=== PATIENT | female | born 1995 | race African-American/Black ===

== ENCOUNTER 2020-05-12 07:25 | Emergency (ER) | payer MEDICAID ==
[~2020-05-12] VITALS: Ht 165.1 cm; Wt 90.7 kg
[2020-05-12 07:27] VITALS: BP 129/57
[2020-05-12] MEDS ORDERED: LIDOCAINE 1% HCL (LOCAL ANESTH.) INJ 20ML MDV IJ ONE (08:30)
== END 2020-05-12 09:07 | disposition home or self-care (01) ==
LOC: ER 07:25
DX: S61.012A Laceration without foreign body of left thumb without damage to nail, initial encounter (principal); W26.0XXA Contact with knife, initial encounter; Y93.89 Activity, other specified; Y92.89 Other specified places as the place of occurrence of the external cause; Y99.8 Other external cause status
CPT/HCPCS: 12001; 99282; J2001

== ENCOUNTER 2022-07-08 17:42 | Emergency (ER) | payer MEDICAID ==
[~2022-07-08] VITALS: Ht 165.1 cm; Wt 113.4 kg
[2022-07-08] MEDS ORDERED: PRED20TA2 PO (19:05)
[2022-07-08] MEDS ORDERED: AZIT250T9 PO (19:05)
[2022-07-08] MEDS ORDERED: methylPREDNISolone SOD SUCC 125 MG/2 ML VL IM ONE (19:15)
[2022-07-08] MEDS ORDERED: cefTRIAXone SOD 1,000 MG VL IM ONE (19:15)
[2022-07-08 21:42] VITALS: BP 130/72
== END 2022-07-08 21:45 | disposition home or self-care (01) ==
LOC: ER 17:42
DX: J06.9 Acute upper respiratory infection, unspecified (principal); H92.01 Otalgia, right ear
CPT/HCPCS: 96372; 99283; J0696

== ENCOUNTER 2023-10-23 16:02 | Emergency (ER) | payer MEDICAID ==
[~2023-10-23] VITALS: Ht 165.1 cm; Wt 101.2 kg
[~2023-10-23 16:02] MED LIST: AZIT-43 PO; PRED20TA2 PO
[2023-10-23] MEDS: KETOROLAC TROMETH 30 MG/ML 1ML VIAL IM ONE (17:39)
[2023-10-23] MEDS: METOCLOPRAMIDE HCL 5MG/ml INJ 2ml VIAL IM ONE (17:39)
[2023-10-23 17:42] LABS: Basophils # (auto) 0 10 ^3/uL (0-0.2); Basophils % (auto) 0.2 % (0.0-2.0); Eosinophils # (auto) 0 10 ^3/uL (0-0.8); Eosinophils % (auto) 0.4 % (0.0-7.0); Hematocrit 39.2 % (36.0-46.0); Hemoglobin 13.1 g/dL (12.2-16.2); Lymphocytes # (auto) 1.5 10 ^3/uL (0.4-5.4); Mean Corpuscular Hemoglobin 28.5 pg (28.0-32.0); Mean Corpuscular Hgb Conc. 33.4 g/dL (32.0-36.0); Mean Corpuscular Volume 85.2 fL (80.0-100.0); Monocytes # (auto) 0.6 10 ^3/uL (0-1.3); Monocytes % (auto) 8.8 % (0.0-12.0); Neutrophils # (auto) 4.8 10 ^3/uL (1.6-8.6); Neutrophils % (auto) 68.6 % (37.0-80.0); Nucleated Red Blood Cells % 0.1 %; Platelet Count (auto) 335 10^3/uL (140-450); Red Blood Cells 4.61 10^6/uL (4.0-5.20)
[2023-10-23 17:45] LABS: Alanine Aminotransferase 124 U/L (7-40); Albumin 4.4 g/dL (3.2-4.8); Alkaline Phosphatase 115 U/L (46-116); Anion Gap 7 (5-15); Aspartate Aminotransferase 124 U/L (13-40); BUN/Creatinine Ratio 7.2 (10.0-20.0); Blood Urea Nitrogen 5 mg/dL (9-23); Calcium 9.6 mg/dL (8.7-10.4); Carbon Dioxide 22 mmol/L (20-30); Chloride 108 mmol/L (98-107); Glucose 94 mg/dL (74-106); Potassium 3.9 mmol/L (3.5-5.1); Sodium 137 mmol/L (136-145)
[2023-10-23 17:46] VITALS: BP 136/85; PULSE 79; RESP 18; TEMP 98; O2SAT 98
[2023-10-23 17:46] LABS: Bilirubin, Total 0.8 mg/dL (0.2-1.0); Total Protein 7.2 g/dL (5.7-8.2)
[2023-10-23 18:43] LABS: Urine Bacteria None Seen /hpf (None Seen)
[2023-10-23 19:01] LABS: Urine Blood Negative /uL (Negative); Urine Clarity Clear (Clear); Urine Color Yellow (Yellow); Urine Mucus FEW (None Seen); Urine Protein, UAD 1+ (Negative); Urine Specific Gravity 1.033 (1.001-1.035); Urine Urobilinogen Normal (Negative); Urine WBC 1 /hpf (0 - 5)
== END 2023-10-23 22:17 | disposition home or self-care (01) ==
LOC: ER 16:02
DX: K80.20 Calculus of gallbladder without cholecystitis without obstruction (principal); R10.2 Pelvic and perineal pain; Z79.52 Long term (current) use of systemic steroids
CPT/HCPCS: 36415; 76705; 80053; 81001; 84702; 85025; 96372; 99285; J1885; J2765

== ENCOUNTER 2023-12-14 13:22 | Inpatient (IN) | payer MEDICAID ==
[~2023-12-14] VITALS: Ht 165.1 cm; Wt 107.0 kg
[2023-12-14 13:53] VITALS: RESP 18
[2023-12-14 14:44] LABS: Basophils # (auto) 0 10 ^3/uL (0-0.2); Basophils % (auto) 0.4 % (0.0-2.0); Eosinophils # (auto) 0 10 ^3/uL (0-0.8); Eosinophils % (auto) 0.5 % (0.0-7.0); Hematocrit 38.2 % (36.0-46.0); Hemoglobin 12.4 g/dL (12.2-16.2); Lymphocytes % (auto) 22.8 % (10.0-50.0); Mean Corpuscular Hgb Conc. 32.5 g/dL (32.0-36.0); Mean Corpuscular Volume 83.1 fL (80.0-100.0); Monocytes # (auto) 0.9 10 ^3/uL (0-1.3); Monocytes % (auto) 9.7 % (0.0-12.0); Neutrophils # (auto) 5.9 10 ^3/uL (1.6-8.6); Neutrophils % (auto) 66.6 % (37.0-80.0); Nucleated Red Blood Cells % 0.1 %; Platelet Count (auto) 380 10^3/uL (140-450); Red Blood Cells 4.59 10^6/uL (4.0-5.20); Red Cell Distribution Width 15.7 % (11.8-14.3); White Blood Cell 8.9 10^3/uL (4.4-10.8)
[2023-12-14] MEDS: SODIUM CHLORIDE 0.9% 1,000 ML IV ONE (14:49)
[2023-12-14] MEDS: ONDANSETRON HCL 4 MG/2 ML VIAL IV ONE ×3 (14:52→20:59)
[2023-12-14] MEDS: MORPHINE SULFATE 4 MG/ML SYR/VIAL IV ONE ×3 (14:55→21:00)
[2023-12-14 15:02] LABS: Alanine Aminotransferase 112 U/L (7-40); Albumin 4.6 g/dL (3.2-4.8); Alkaline Phosphatase 92 U/L (46-116); Anion Gap 10 (5-15); Aspartate Aminotransferase 181 U/L (13-40); BUN/Creatinine Ratio 9.3 (10.0-20.0); Blood Urea Nitrogen 7 mg/dL (9-23); Calcium 9.7 mg/dL (8.7-10.4); Carbon Dioxide 22 mmol/L (20-31); Chloride 105 mmol/L (98-107); Glucose 126 mg/dL (74-106); Potassium 3.2 mmol/L (3.5-5.1); Sodium 137 mmol/L (136-145)
[2023-12-14 15:03] LABS: Total Protein 7.4 g/dL (5.7-8.2)
[2023-12-14 15:29] LABS: Lipase > 3500 U/L (12-53)
[2023-12-14] MEDS: KETOROLAC TROMETH 30 MG/ML 1ML VIAL IV ONE (20:59)
[2023-12-15] MEDS: ONDANSETRON HCL 4 MG/2 ML VIAL IV ONE ×3 (00:51→08:18)
[2023-12-15] MEDS: KETOROLAC TROMETH 30 MG/ML 1ML VIAL IV ONE ×3 (00:51→11:39)
[2023-12-15] MEDS: MORPHINE SULFATE 4 MG/ML SYR/VIAL IV ONE ×3 (00:52→08:21)
[2023-12-15 00:56] LABS: Urine Bacteria None Seen /hpf (None Seen)
[2023-12-15 01:04] LABS: Urine Amorphous Crystal FEW /hpf (None Seen); Urine Blood Negative /uL (Negative); Urine Clarity Turbid (Clear); Urine Color Yellow (Yellow); Urine Mucus FEW (None Seen); Urine Protein, UAD 1+ (Negative); Urine Specific Gravity 1.034 (1.001-1.035); Urine Urobilinogen Normal (Negative); Urine WBC 6 /hpf (0 - 5)
[2023-12-15 07:30] VITALS: PULSE 78; RESP 16; O2SAT 95
[2023-12-15] MEDS: ONDANSETRON HCL 4 MG/2 ML VIAL ONE (08:18)
[2023-12-15] MEDS ORDERED: MORPHINE SULFATE INJ 2 MG/ml SYRG IV PRN ×2 (08:45→09:45)
[2023-12-15] MEDS ORDERED: ONDANSETRON HCL 4 MG/2 ML VIAL IV PRN (08:45)
[2023-12-15] MEDS: POTASSIUM CHL 20MEQ/100ML 100 ML IV ONE (10:16)
[2023-12-15] MEDS: LACTATED RINGER'S 1,000 ML IV SCH (13:16)
[2023-12-15] MEDS: ONDANSETRON HCL 4 MG/2 ML VIAL IV PRN (15:58)
[2023-12-15] MEDS: HYDROmorphone HCL 2 MG/ML VL/or syr IV PRN (16:00)
[2023-12-15 19:55] VITALS: PULSE 88; RESP 12; O2SAT 94
[2023-12-15] MEDS ORDERED: ACETAMINOPHEN IV 1000 MG/100ML (10MG/ML) IV PRN (20:00)
[2023-12-15 20:48] VITALS: BP 143/90; PULSE 83; RESP 16; TEMP 100.5; O2SAT 95
[2023-12-15 22:05] VITALS: TEMP 99.8
[2023-12-15 23:40] VITALS: BP 143/40; PULSE 83; RESP 16; TEMP 99.8; O2SAT 95
[2023-12-16] VITALS (8 sets, daily range): BP systolic 130–156; BP diastolic 76–84; PULSE 65–100; RESP 16–21; TEMP 98.1–99.8; O2SAT 94–99
[2023-12-16] MEDS ORDERED: IBUP-1456 PO (00:28)
[2023-12-16] MEDS ORDERED: LINA1CAP2 PO (00:28)
[2023-12-16] MEDS ORDERED: PANT40TA2 PO (00:28)
[2023-12-16 06:25] LABS: Basophils # (auto) 0 10 ^3/uL (0-0.2); Basophils % (auto) 0.1 % (0.0-2.0); Eosinophils # (auto) 0 10 ^3/uL (0-0.8); Hematocrit 34.3 % (36.0-46.0); Hemoglobin 11.2 g/dL (12.2-16.2); Lymphocytes # (auto) 1.1 10 ^3/uL (0.4-5.4); Lymphocytes % (auto) 10.4 % (10.0-50.0); Mean Corpuscular Hemoglobin 27.5 pg (28.0-32.0); Mean Corpuscular Hgb Conc. 32.5 g/dL (32.0-36.0); Mean Corpuscular Volume 84.3 fL (80.0-100.0); Monocytes # (auto) 1.2 10 ^3/uL (0-1.3); Monocytes % (auto) 11.5 % (0.0-12.0); Neutrophils # (auto) 8.4 10 ^3/uL (1.6-8.6); Platelet Count (auto) 321 10^3/uL (140-450); Red Blood Cells 4.07 10^6/uL (4.0-5.20); Red Cell Distribution Width 16.1 % (11.8-14.3); White Blood Cell 10.8 10^3/uL (4.4-10.8)
[2023-12-16 06:31] LABS: Chloride 109 mmol/L (98-107); Potassium 3.8 mmol/L (3.5-5.1); Sodium 141 mmol/L (136-145)
[2023-12-16 06:32] LABS: Anion Gap 8 (5-15); Calcium 9.2 mg/dL (8.7-10.4); Carbon Dioxide 24 mmol/L (20-31)
[2023-12-16 06:37] LABS: Blood Urea Nitrogen 7 mg/dL (9-23); Glucose 95 mg/dL (74-106)
[2023-12-16] MEDS: PANTOPRAZOLE 40 MG/10 ML VIAL INJ IV ONE (21:00)
[2023-12-17] VITALS (8 sets, daily range): BP systolic 104–149; BP diastolic 62–76; PULSE 63–94; RESP 16–19; TEMP 97.6–100.1; O2SAT 94–98
[2023-12-17] MEDS: HYDROcodone-ACET 10/325MG TAB PO PRN (00:46)
[2023-12-17 06:22] LABS: Basophils # (auto) 0 10 ^3/uL (0-0.2); Basophils % (auto) 0.2 % (0.0-2.0); Eosinophils # (auto) 0 10 ^3/uL (0-0.8); Eosinophils % (auto) 0.1 % (0.0-7.0); Hematocrit 32.2 % (36.0-46.0); Hemoglobin 10.4 g/dL (12.2-16.2); Lymphocytes # (auto) 1.9 10 ^3/uL (0.4-5.4); Lymphocytes % (auto) 18.2 % (10.0-50.0); Mean Corpuscular Hemoglobin 27.2 pg (28.0-32.0); Mean Corpuscular Hgb Conc. 32.2 g/dL (32.0-36.0); Mean Corpuscular Volume 84.3 fL (80.0-100.0); Monocytes # (auto) 1.4 10 ^3/uL (0-1.3); Neutrophils # (auto) 7.2 10 ^3/uL (1.6-8.6); Neutrophils % (auto) 68.5 % (37.0-80.0); Platelet Count (auto) 290 10^3/uL (140-450); Red Blood Cells 3.83 10^6/uL (4.0-5.20); Red Cell Distribution Width 16.1 % (11.8-14.3); White Blood Cell 10.5 10^3/uL (4.4-10.8)
[2023-12-17 06:51] LABS: Alanine Aminotransferase 26 U/L (7-40); Albumin 3.6 g/dL (3.2-4.8); Alkaline Phosphatase 65 U/L (46-116); Anion Gap 9 (5-15); Aspartate Aminotransferase 14 U/L (13-40); BUN/Creatinine Ratio 12.9 (10.0-20.0); Bilirubin, Total 0.9 mg/dL (0.2-1.0); Blood Urea Nitrogen 8 mg/dL (9-23); Calcium 8.9 mg/dL (8.7-10.4); Carbon Dioxide 25 mmol/L (20-31); Chloride 107 mmol/L (98-107); Glucose 80 mg/dL (74-106); Potassium 3.7 mmol/L (3.5-5.1); Sodium 141 mmol/L (136-145)
[2023-12-17] MEDS: PANTOPRAZOLE 40 MG/10 ML VIAL INJ IV SCH (09:18)
[2023-12-17] MEDS: ENOXAPARIN SOD 40 MG/0.4 ML SYRINGE SC SCH (09:18)
[2023-12-17] MEDS: OXYCODONE W/ ACETAMINOPHEN 5/325MG TABLET PO PRN (14:14)
[2023-12-18] VITALS (8 sets, daily range): BP systolic 126–135; BP diastolic 75–83; PULSE 86–106; RESP 17–18; TEMP 98.9–101; O2SAT 92–98
[2023-12-18 06:13] LABS: Basophils # (auto) 0 10 ^3/uL (0-0.2); Basophils % (auto) 0.1 % (0.0-2.0); Eosinophils # (auto) 0 10 ^3/uL (0-0.8); Eosinophils % (auto) 0.2 % (0.0-7.0); Lymphocytes # (auto) 1.3 10 ^3/uL (0.4-5.4); Lymphocytes % (auto) 14.4 % (10.0-50.0); Mean Corpuscular Hemoglobin 27.2 pg (28.0-32.0); Mean Corpuscular Hgb Conc. 32.2 g/dL (32.0-36.0); Mean Corpuscular Volume 84.6 fL (80.0-100.0); Monocytes # (auto) 1.3 10 ^3/uL (0-1.3); Monocytes % (auto) 13.7 % (0.0-12.0); Neutrophils # (auto) 6.5 10 ^3/uL (1.6-8.6); Neutrophils % (auto) 71.6 % (37.0-80.0); Platelet Count (auto) 294 10^3/uL (140-450); Red Blood Cells 3.66 10^6/uL (4.0-5.20); Red Cell Distribution Width 15.4 % (11.8-14.3); White Blood Cell 9.2 10^3/uL (4.4-10.8)
[2023-12-18 06:31] LABS: Alanine Aminotransferase 20 U/L (7-40); Albumin 3.7 g/dL (3.2-4.8); Alkaline Phosphatase 69 U/L (46-116); Anion Gap 9 (5-15); Aspartate Aminotransferase 12 U/L (13-40); BUN/Creatinine Ratio 10.7 (10.0-20.0); Blood Urea Nitrogen 6 mg/dL (9-23); Carbon Dioxide 25 mmol/L (20-31); Chloride 105 mmol/L (98-107); Glucose 72 mg/dL (74-106); Lipase 76 U/L (12-53); Potassium 3.5 mmol/L (3.5-5.1); Sodium 139 mmol/L (136-145)
[2023-12-18 06:32] LABS: Bilirubin, Total 0.8 mg/dL (0.2-1.0); Total Protein 6.1 g/dL (5.7-8.2)
[2023-12-18] MEDS: ACETAMINOPHEN 325 MG TAB PO PRN (21:16)
[2023-12-19] VITALS (7 sets, daily range): BP systolic 126–140; BP diastolic 70–88; PULSE 85–101; RESP 15–18; TEMP 98.2–99.8; O2SAT 90–97
[2023-12-19 06:35] LABS: Basophils # (auto) 0 10 ^3/uL (0-0.2); Basophils % (auto) 0.1 % (0.0-2.0); Eosinophils # (auto) 0 10 ^3/uL (0-0.8); Eosinophils % (auto) 0.6 % (0.0-7.0); Hematocrit 30.1 % (36.0-46.0); Hemoglobin 10.2 g/dL (12.2-16.2); Lymphocytes # (auto) 1.7 10 ^3/uL (0.4-5.4); Lymphocytes % (auto) 20.9 % (10.0-50.0); Mean Corpuscular Hemoglobin 28.3 pg (28.0-32.0); Mean Corpuscular Hgb Conc. 33.9 g/dL (32.0-36.0); Mean Corpuscular Volume 83.5 fL (80.0-100.0); Monocytes % (auto) 11.8 % (0.0-12.0); Neutrophils # (auto) 5.6 10 ^3/uL (1.6-8.6); Neutrophils % (auto) 66.6 % (37.0-80.0); Platelet Count (auto) 308 10^3/uL (140-450); Red Cell Distribution Width 14.8 % (11.8-14.3); White Blood Cell 8.3 10^3/uL (4.4-10.8)
[2023-12-19 07:00] LABS: Alanine Aminotransferase 15 U/L (7-40); Albumin 3.6 g/dL (3.2-4.8); Alkaline Phosphatase 65 U/L (46-116); Anion Gap 7 (5-15); Aspartate Aminotransferase 12 U/L (13-40); Bilirubin, Total 0.5 mg/dL (0.2-1.0); Carbon Dioxide 27 mmol/L (20-31); Chloride 104 mmol/L (98-107); Glucose 86 mg/dL (74-106); Potassium 3.2 mmol/L (3.5-5.1); Sodium 138 mmol/L (136-145); Total Protein 6.1 g/dL (5.7-8.2)
[2023-12-19 07:02] LABS: BUN/Creatinine Ratio 8.3 (10.0-20.0); Blood Urea Nitrogen < 5 mg/dL (9-23)
[2023-12-20 01:03] VITALS: BP 127/72; PULSE 72; RESP 18; TEMP 99.4; O2SAT 100
[2023-12-20 05:00] VITALS: BP 139/93; PULSE 85; RESP 18; TEMP 98.6; O2SAT 92
[2023-12-20 09:08] VITALS: BP 126/98; PULSE 98; RESP 18; TEMP 99.4; O2SAT 95
[2023-12-20] MEDS: LACTULOSE 20Gm/30ML SOLN PO ONE (09:58)
[2023-12-20] MEDS ORDERED: ZOFR4T PO (12:55)
[2023-12-20] MEDS ORDERED: HYDR-4072 PO (12:55)
[2023-12-20 13:39] VITALS: BP 134/83; PULSE 99; RESP 16; TEMP 98.8; O2SAT 95
== END 2023-12-20 14:24 | disposition home or self-care (01) ==
LOC: ER 13:22 → OVERFLOW 12-15 08:41 → ER 12-15 08:41 → EAST 12-15 20:40
PROVIDERS: ADMIT Student in an Organized Health Care Education/Training Program; ATTEND Student in an Organized Health Care Education/Training Program
DX: K80.20 Calculus of gallbladder without cholecystitis without obstruction (principal); K85.10 Biliary acute pancreatitis without necrosis or infection; E88.89 Other specified metabolic disorders; E87.6 Hypokalemia; E86.0 Dehydration; D64.9 Anemia, unspecified; Z88.3 Allergy status to other anti-infective agents; Z79.899 Other long term (current) drug therapy; E86.9 Volume depletion, unspecified
CPT/HCPCS: 36415; 74181; 76705; 80048; 80053; 81001; 81025; 83690; 85025; 93005; 96361; 96374; 96375; 96376; 99291; G0378; J1885; J2405; J2470; J3480

== ENCOUNTER 2024-01-06 09:18 | Inpatient (IN) | payer MEDICAID ==
[~2024-01-06] VITALS: Ht 165.1 cm; Wt 105.7 kg
[~2024-01-06 09:18] MED LIST changes: +HYDR-4072 PO; +IBUP-1456 PO; +LINA1CAP2 PO; +PANT40TA2 PO; -PRED20TA2 PO; +ZOFR4T PO
--- NOTE | 2024-01-06 10:30 | ED.PDOC ---
GI ASSESSMENT HPI Comments 28 year old female presents to the ED with chief complaint of abdominal pain. Patient reports that she has been experiencing epigastric abdominal pain that radiates to her RUQ/back with associated nausea, vomiting, and sweats for the past few days. Patient relays that she had similar pain two weeks ago where she was diagnosed with pancreatitis and gallstones in [facility], being admitted for a few days before discharge. Patient states she is now scheduled for gallbladder surgery in February, but her pain has now returned. Patient denies any diarrhea, chest pain, fever, chills, dizziness, dysuria, or hematemesis. Chief Complaint: Abdominal Pain Time Seen by MD: 10:26 Primary Care Provider: CLOVIS Reviewed Notes: Nurses Notes, Medications, Allergies Allergies: Coded Allergies: Sulfamethoxazole w/Trimethoprim (Verified Allergy, Unknown, 12/15/23) Home Meds Active Scripts Ondansetron Odt 4MG Tab (ZOFRAN PO) 4 Mg Tb, 4 MG PO TIDPRN PRN for 7 Days, #21 TAB 0 Refills ODT TAB-DISSOLVE IN MOUTH, THEN SWALLOW Prov:JUAN MANUEL FOLEY MD 12/20/23 Hydrocodone-Acetaminophen (Hydrocodone/Acetaminophen 10-325 mg) 1 Tab Tab, 1 TAB PO TIDPRN PRN for 7 Days, #21 TAB 0 Refills Prov:JUAN MANUEL FOLEY MD 12/20/23 Azithromycin (Azithromycin) 250 Mg Tab, 250 MG PO DAILY MDD 500 for 5 Days, #6 TAB 0 Refills 2 TABLETS ORALLY ON DAY ONE, THEN 1 TABLET ORALLY DAILY FOR 4 DAYS Prov:NIKKI GRULLON 07/08/22 Reported Medications Pantoprazole Sodium Sesquihydr (Protonix) 40 Mg Tab, 40 MG PO DAILY, #30 TAB 12/16/23 Ibuprofen (Ibuprofen) 800 Mg Tab, 800 MG PO, MG 12/16/23 Linaclotide Base (Linzess) 72 Mcg Cap, 100 MCG PO, CAP 12/16/23 Information Source: Patient Mode of Arrival: Ambulatory Timing: Days Duration: Since onset Prehospital treatment: None Quality: Sharp Vomitus: Watery Stool: Normal Severity: Moderate Recent: None Recent Hx of: None Pain Location: RUQ Modifying Factors: Nothing Associated sign and symptoms: Nausea, Vomiting, Abdominal Pain Past Medical History PAST MEDICAL HISTORY: Gallstones Past Medical History (Other): Pancreatitis Surgical History: Denies all surgeries FRAME COVERER History: Denies all FRAME COVERER Hx Family History Family History: Reviewed,noncontributory to illness Social History Smoker: Non-Smoker Alcohol: Denies ETOH Use Drugs: Denies Drug Use Lives In: Home Constitutional: reports: sweats; denies: chills, diaphoresis, fatigue, fever, malaise, weakness, others EENTM: denies: blurred vision, double vision, ear bleeding, ear discharge, ear drainage, ear pain, ear ringing, eye pain, eye redness, hearing loss, mouth pain, mouth swelling, nasal discharge, nose bleeding, nose congestion, nose pain, photophobia, tearing, throat pain, throat swelling, voice changes, others Respiratory: denies: cough, hemoptysis, orthopnea, SOB at rest, shortness of breath, SOB with excertion, stridor, wheezing, others Cardiovascular: denies: chest pain, dizzy spells, diaphoresis, Dyspnea on exertion, edema, irregular heart beat, left arm pain, lightheadedness, palpitations, PND, syncope, others Gastrointestinal: reports: abdominal pain, nausea, vomiting; denies: abdomen distended, blood streaked bowels, constipated, diarrhea, dysphagia, difficulty swallowing, hematemesis, melena, poor appetite, poor fluid intake, rectal bleeding, rectal pain, others Genitourinary: denies: abnormal vagina bleeding, burning, dyspareunia, dysuria, flank pain, frequency, hematuria, incontinence, pain, , vagina disch arge, urgency, others Neurological: denies: dizziness, fainting, headache, left sided numbness, left sided weakness, numbness, paresthesia, pre-existing deficit, right sided numbness, right sided weakness, seizure, speech problems, tingling, tremors, weakness, others Musculoskeletal: denies: back pain, gout, joint pain, joint swelling, muscle pain, muscle stiffness, neck pain, others Integumetry: denies: bruises, change in color, change in hair/nails, dryness, laceration, lesions, lumps, rash, wounds, others Allergic/Immunocompromised: denies: Difficulty Healing, Frequent Infections, Hives, Itching, others Hematologic/Lymphatic: denies: anemia, blood clots, easy bleeding, easy bruising, swollen glands, others Endocrine: denies: excessive hunger, excessive sweating, excessive thirst, excessive urination, flushing, intolerance to cold, intolerance to heat, unexplained weight gain, unexplained weight loss, others Psychiatric: denies: anxiety, bipolar disorder, depression, hopeless, panic disorder, schizophrenia, sleepless, suicidal, others All Other Systems: Reviewed and Negative Physical Exam General Appearance: No Apparent Distress, Normal HEENT: Normal ENT Inspection, PERRL/EOMI Neck: Full Range of Motion, Non-Tender, Normal, Normal Inspection Respiratory: Chest Non-Tender, Lungs Clear, No Accessory Muscle Use, No Respiratory Distress, Normal Breath Sounds Cardiovascular: No Edema, No JVD, No Murmur, No Gallop, Normal Peripheral Pulses, Regular Rate/Rhythm Breast Exam: Deferred Gastrointestinal: No Organomegaly, No Pulsatile Mass, Normal Bowel Sounds, Soft, Tenderness (RUQ abdominal tenderness) Genitalia: Deferred Pelvic: Deferred Rectal: Deferred Extremities: No calf tenderness, Normal capillary refill, Normal inspection, Normal range of motion, Non-tender, No pedal edema Musculoskeletal : Apperance: Normal Neurologic: Alert, manager of production II-XII nml as Tested, No Motor Deficits, Normal Affect, Normal Mood, No Sensory Deficits Cerebellar Function: Normal Reflexes: Normal Skin: Dry, Normal Color, Warm Lymphatic: No Adenopathy Was a procedure done? Was a procedure done?: No GI differential Dx Differential Diagnosis: Cholecystitis, Constipation, Gastritis/PUD, Gastroenteritis, Inflammatory BD, Pancreatitis, UTI, Dehydration, Electrolyte Imbalance, Bacterial, Viral X-Ray, Labs, Meds, VS Vital Signs Date Time Temp Pulse Resp B/P (MAP) Pulse Ox O2 Delivery O2 Flow Rate FiO2 01/06/24 09:31 98.6 84 16 125/83 (97) 99 Lab Test 01/06/24 11:01 01/06/24 09:08 Range/Units White Blood Count 6.8 4.4-10.8 10^3/uL Red Blood Count 4.71 4.0-5.20 10^6/uL Hemoglobin 12.8 12.2-16.2 g/dL Hematocrit 39.7 36.0-46.0 % Mean Corpuscular Volume 84.3 80.0-100.0 fL Mean Corpuscular Hemoglobin 27.2 L 28.0-32.0 pg Mean Corpuscular Hemoglobin Concent 32.2 32.0-36.0 g/dL Red Cell Distribution Width 15.5 H 11.8-14.3 % Platelet Count 391 140-450 10^3/uL Mean Platelet Volume 6.5 L 6.9-10.8 fL Neutrophils (%) (Auto) 70.6 37.0-80.0 % Lymphocytes (%) (Auto) 21.9 10.0-50.0 % Monocytes (%) (Auto) 7.0 0.0-12.0 % Eosinophils (%) (Auto) 0.1 0.0-7.0 % Basophils (%) (Auto) 0.4 0.0-2.0 % Neutrophils # (Auto) 4.8 1.6-8.6 10 ^3/uL Lymphocytes # (Auto) 1.5 0.4-5.4 10 ^3/uL Monocytes # (Auto) 0.5 0-1.3 10 ^3/uL Eosinophils # (Auto) 0 0-0.8 10 ^3/uL Basophils # (Auto) 0 0-0.2 10 ^3/uL Nucleated Red Blood Cells 0.1 % Sodium Level 139 136-145 mmol/L Potassium Level 4.4 3.5-5.1 mmol/L Chloride Level 106 98-107 mmol/L Carbon Dioxide Level 24 20-31 mmol/L Anion Gap 9 5-15 Blood Urea Nitrogen 6 L 9-23 mg/dL Creatinine 0.79 0.550-1.02 mg/dL Glomerular Filtration Rate Calc 106 >90 mL/min BUN/Creatinine Ratio 7.6 L 10.0-20.0 Serum Glucose 94 74-106 mg/dL Calcium Level 10.3 8.7-10.4 mg/dL Total Bilirubin 1.1 H 0.2-1.0 mg/dL Aspartate Amino Transferase (AST) 271 H 13-40 U/L Alanine Aminotransferase (ALT) 154 H 7-40 U/L Alkaline Phosphatase 117 H 46-116 U/L Total Protein 7.8 5.7-8.2 g/dL Albumin 4.6 3.2-4.8 g/dL Lipase 85 H 12-53 U/L Urine Color Yellow Yellow Urine Clarity Clear Clear Urine pH 6.5 5.0-9.0 Urine Specific [place] 1.030 1.001-1.035 Urine Protein 1+ H Negative Urine Ketones Negative Negative Urine Blood Negative Negative /uL Urine Nitrite Negative Negative Urine Bilirubin Negative Negative Urine Urobilinogen 3 H Negative mg/dL Urine Leukocyte Esterase Negative Negative /uL Urine RBC 3 0 - 4 /hpf Urine WBC 2 0 - 5 /hpf Urine Squamous Epithelial Cells Few <5 /hpf Urine Bacteria None seen None Seen /hpf Urine Mucus Few None Seen Urine Glucose Normal Normal mg/dL Gallbladder US: FINDINGS: The visualized liver parenchyma appears homogenous . The liver measures 16.5 cm. No discrete hepatic lesion or intrahepatic biliary ductal dilatation is identified. There is a 5 mm gallbladder wall polyp. There is no discrete gallstone identified in the gallbladder on the current study. There is no pericholecystic fluid or significant gallbladder wall thickening.. The common biliary duct measures 6 mm. There is no obvious choledocholithiasis. The right kidney measures 9.0 cm length. No sonographic evidence of nephrolithiasis or hydronephrosis. Pancreas is obscured by bowel gas. IMPRESSION: 1. There is no sonographic evidence of cholelithiasis on the current study. The common duct measures 6 mm. There is no obvious choledocholithiasis. 2. 5 mm gallbladder wall polyp. Images Reviewed?: Images reviewed and evaluated by me Time of 1ST Reevaluation: 11:26 Reevaluation 1ST: Unchanged Patient Education/Counseling: Diagnosis, Treatment Family Education/Counseling: No Family Present Departure 1 Departure Time of Disposition: 13:29 (Patient is still with intractable abdominal pain. Patient also not tolerating p.o.. Patient with transaminitis your mildly elevated lipase. Patient's ultrasound shows a gallbladder polyp. We will admit patient for fluids and expert consultation.) Impression: Primary Impression: Projectile vomiting with nausea Additional Impressions: Transaminitis Right upper quadrant pain Disposition: ADMITTED INPATIENT Admit to: Med Surg Condition: Serious Critical Care Note Critical Care Time?: No Stability Stability form required: No Heart Score Heart Score: Heart Score Response (Comments) Value History N/A 0 EKG N/A 0 Age N/A 0 Risk Factors N/A 0 Troponin N/A 0 Total 0 I personally scribed for QUIQUE LEE MD ([email or web address]) on 01/06/24 at 10:30. Electronically submitted by Jorgito Johnson ([email or web address]). I personally scribed for QUIQUE LEE MD ([email or web address]) on 01/06/24 at 11:27. Electronically submitted by Jorgito Johnson ([email or web address]). QUIQUE LEE MD Jan 06, 2024 10:30
--- NOTE | 2024-01-06 10:57 | DVH ---
ULTRASOUND ABDOMEN LIMITED INDICATION: ruq pain TECHNIQUE: Multiple real-time sonographic images of the abdomen were obtained. COMPARISON: US GALLBLADDER on DOS: 12/14/23, US GALLBLADDER on DOS: 10/23/23 FINDINGS: The visualized liver parenchyma appears homogenous . The liver measures 16.5 cm. No discrete hep atic lesion or intrahepatic biliary ductal dilatation is identified. There is a 5 mm gallbladder wall polyp. There is no discrete gallstone identified in the gallbladder on the current study. There is no pericholecystic fluid or significant gallbladder wall thickening.. The common biliary duct measures 6 mm. There is no obvious choledocholithiasis. The right kidney measures 9.0 cm length. No sonographic evidence of nephrolithiasis or hydronephros is. Pancreas is obscured by bowel gas. IMPRESSION: 1. There is no sonographic evidence of cholelithiasis on the current study. The common duct measures 6 mm. There is no obvious choledocholithiasis. 2. 5 mm gallbladder wall polyp. HS:Y
[2024-01-06 11:16] LABS: Urine Bacteria None Seen /hpf (None Seen)
[2024-01-06 11:24] LABS: Basophils # (auto) 0 10 ^3/uL (0-0.2); Basophils % (auto) 0.4 % (0.0-2.0); Eosinophils # (auto) 0 10 ^3/uL (0-0.8); Eosinophils % (auto) 0.1 % (0.0-7.0); Hematocrit 39.7 % (36.0-46.0); Hemoglobin 12.8 g/dL (12.2-16.2); Lymphocytes # (auto) 1.5 10 ^3/uL (0.4-5.4); Lymphocytes % (auto) 21.9 % (10.0-50.0); Mean Corpuscular Hemoglobin 27.2 pg (28.0-32.0); Mean Corpuscular Hgb Conc. 32.2 g/dL (32.0-36.0); Mean Corpuscular Volume 84.3 fL (80.0-100.0); Monocytes # (auto) 0.5 10 ^3/uL (0-1.3); Neutrophils # (auto) 4.8 10 ^3/uL (1.6-8.6); Neutrophils % (auto) 70.6 % (37.0-80.0); Nucleated Red Blood Cells % 0.1 %; Platelet Count (auto) 391 10^3/uL (140-450); Red Blood Cells 4.71 10^6/uL (4.0-5.20); Red Cell Distribution Width 15.5 % (11.8-14.3); White Blood Cell 6.8 10^3/uL (4.4-10.8)
[2024-01-06 11:24] LABS: Urine Blood Negative /uL (Negative); Urine Clarity Clear (Clear); Urine Color Yellow (Yellow); Urine Mucus FEW (None Seen); Urine Protein, UAD 1+ (Negative); Urine Urobilinogen 3 mg/dL (Negative); Urine WBC 2 /hpf (0 - 5); Urine pH 6.5 (5.0-9.0)
[2024-01-06 11:28] LABS: Alanine Aminotransferase 154 U/L (7-40); Albumin 4.6 g/dL (3.2-4.8); Alkaline Phosphatase 117 U/L (46-116); Anion Gap 9 (5-15); Aspartate Aminotransferase 271 U/L (13-40); BUN/Creatinine Ratio 7.6 (10.0-20.0); Blood Urea Nitrogen 6 mg/dL (9-23); Calcium 10.3 mg/dL (8.7-10.4); Carbon Dioxide 24 mmol/L (20-31); Chloride 106 mmol/L (98-107); Glucose 94 mg/dL (74-106); Potassium 4.4 mmol/L (3.5-5.1); Sodium 139 mmol/L (136-145)
[2024-01-06 11:29] LABS: Bilirubin, Total 1.1 mg/dL (0.2-1.0); Total Protein 7.8 g/dL (5.7-8.2)
[2024-01-06 12:04] LABS: Lipase 85 U/L (12-53)
--- NOTE | 2024-01-06 13:58 | DVHHP2 ---
History of Present Illness Reason for Visit: Epigastric abdominal pain History of Present Illness Mahad Christine is a 28YO F with pmHx of pancreatitis, cholelithiasis, and right ankle ORIF 2 years ago d/t fall who presents to the ED with recurrent epigastric abdominal pain that radiates to her back with associated N/V and sweats x 1 day. Patient reports she was diagnosed with pancreatitis and gallstones at [facility] 2 weeks ago and is scheduled for an evaluation with general surgery on March 01, 2024 for a possible cholecystectomy. Patient states her pain is 9/10 and reports her pain is worse when eating. She also report having diarrhea for the past 3 days. She reports that these symptoms started to occur after she was started on a weight loss injection medication earlier this year by her PCP. Patient reported vomiting 6 times last night. She denies any fever, chills, shortness of breath, and chest pain. Hepatobiliary: Cholelithiasis Past Medical History Pancreatitis Past Surgical History: Other (Right ankle ORIF) Family History: None Smoke: <1 pack per day ALCOHOL: occassional Drugs: None Lives: with Family Domestic Violence: Neg Review of Systems Constitutional: No: Fever, Chills, Sweats, Weakness, Malaise, Other Eyes: No: Pain, Vision change, Conjunctivae inflammation, Eyelid inflammation, Other, Redness ENT: No: Ear pain, Ear discharge, Nose pain, Nose discharge, Nose congestion, Mouth pain, Mouth swelling, Throat pain, Throat swelling, Other Respiratory: No: Cough, Dry, Shortness of breath, SOB with excertion, Wheezing, Hemoptysis, Pleuritic Pain, Sputum, Wheezing, Other Cardiovascular: No: Chest Pain, Palpitations, Orthopnea, Paroxysmal Noc. D yspnea, Edema, Lt Headedness, Other Gastrointestinal: Nausea, Vomiting, Abdominal Pain, Diarrhea; No: Constipation, Melena, Hematochezia, Other Genitourinary: No Dysuria, No Frequency, No Incontinence, No Hematuria, No Retention, No Other Musculoskeletal: back pain; No: other, neck pain, shoulder pain, arm pain, hand pain, leg pain, foot pain Skin: No: Rash, Lesions, Jaundice, Bruising, Other Neurological: No: Weakness, Numbness, Incoordination, Change in speech, Confusion, Seizures, Other Allergies: Coded Allergies: Sulfamethoxazole w/Trimethoprim (Verified Allergy, Unknown, 12/15/23) Exam Vital Signs Vital Signs Date Time Temp Pulse Resp B/P (MAP) Pulse Ox O2 Delivery O2 Flow Rate FiO2 01/06/24 09:31 98.6 84 16 125/83 (97) 99 General Appearance: Alert, Oriented X3, Cooperative HEENT: PERRLA, EOMI, Mucous membr. moist/pink Respiratory: Clear to auscultation, Normal air movement Cardiovascular: Regular rate, Normal S1, Normal S2, No murmurs Abdominal: Soft Extremities: No clubbing, No cyanosis, No edema, Normal pulses, No tenderness/swelling Skin: No rashes, No breakdown, No significant lesion Neuro: Normal gait, Normal speech, Strength at 5/5 X4 ext, Normal tone, Sensation intact Psych/Mental Status: Mental status NL, Mood NL Labs/Xrays Labs Test 01/06/24 11:01 01/06/24 09:08 Range/Units White Blood Count 6.8 4.4-10.8 10^3/uL Red Blood Count 4.71 4.0-5.20 10^6/uL Hemoglobin 12.8 12.2-16.2 g/dL Hematocrit 39.7 36.0-46.0 % Mean Corpuscular Volume 84.3 80.0-100.0 fL Mean Corpuscular Hemoglobin 27.2 L 28.0-32.0 pg Mean Corpuscular Hemoglobin Concent 32.2 32.0-36.0 g/dL Red Cell Distribution Width 15.5 H 11.8-14.3 % Platelet Count 391 140-450 10^3/uL Mean Platelet Volume 6.5 L 6.9-10.8 fL Neutrophils (%) (Auto) 70.6 37.0-80.0 % Lymphocytes (%) (Auto) 21.9 10.0-50.0 % Monocytes (%) (Auto) 7.0 0.0-12.0 % Eosinophils (%) (Auto) 0.1 0.0-7.0 % Basophils (%) (Auto) 0.4 0.0-2.0 % Neutrophils # (Auto) 4.8 1.6-8.6 10 ^3/uL Lymphocytes # (Auto) 1.5 0.4-5.4 10 ^3/uL Monocytes # (Auto) 0.5 0-1.3 10 ^3/uL Eosinophils # (Auto) 0 0-0.8 10 ^3/uL Basophils # (Auto) 0 0-0.2 10 ^3/uL Nucleated Red Blood Cells 0.1 % Sodium Level 139 136-145 mmol/L Potassium Level 4.4 3.5-5.1 mmol/L Chloride Level 106 98-107 mmol/L Carbon Dioxide Level 24 20-31 mmol/L Anion Gap 9 5-15 Blood Urea Nitrogen 6 L 9-23 mg/dL Creatinine 0.79 0.550-1.02 mg/dL Glomerular Filtration Rate Calc 106 >90 mL/min BUN/Creatinine Ratio 7.6 L 10.0-20.0 Serum Glucose 94 74-106 mg/dL Calcium Level 10.3 8.7-10.4 mg/dL Total Bilirubin 1.1 H 0.2-1.0 mg/dL Aspartate Amino Transferase (AST) 271 H 13-40 U/L Alanine Aminotransferase (ALT) 154 H 7-40 U/L Alkaline Phosphatase 117 H 46-116 U/L Total Protein 7.8 5.7-8.2 g/dL Albumin 4.6 3.2-4.8 g/dL Lipase 85 H 12-53 U/L Urine Color Yellow Yellow Urine Clarity Clear Clear Urine pH 6.5 5.0-9.0 Urine Specific [place] 1.030 1.001-1.035 Urine Protein 1+ H Negative Urine Ketones Negative Negative Urine Blood Negative Negative /uL Urine Nitrite Negative Negative Urine Bilirubin Negative Negative Urine Urobilinogen 3 H Negative mg/dL Urine Leukocyte Esterase Negative Negative /uL Urine RBC 3 0 - 4 /hpf Urine WBC 2 0 - 5 /hpf Urine Squamous Epithelial Cells Few <5 /hpf Urine Bacteria None seen None Seen /hpf Urine Mucus Few None Seen Urine Glucose Normal Normal mg/dL ULTRASOUND ABDOMEN LIMITED FINDINGS: The visualized liver parenchyma appears homogenous . The liver measures 16.5 cm. No discrete hepatic lesion or intrahepatic biliary ductal dilatation is identified. There is a 5 mm gallbladder wall polyp. There is no discrete gallstone identified in the gallbladder on the current study. There is no pericholecystic fluid or significant gallbladder wall thickening.. The common biliary duct measures 6 mm. There is no obvious choledocholithiasis. The right kidney measures 9.0 cm length. No sonographic evidence of nephroli thiasis or hydronephrosis. Pancreas is obscured by bowel gas. IMPRESSION: 1. There is no sonographic evidence of cholelithiasis on the current study. The common duct measures 6 mm. There is no obvious choledocholithiasis. 2. 5 mm gallbladder wall polyp. Assessment/Plan Assessment/Plan Assessment: Acute cholelithiasis Transaminitis Hyperlipasemia Hyperbilirubinemia Hx of right ankle ORIF Plan: Admit to med surg NPO Surgery consulted IVf Pain management Antiemetics AM labs Home medications reconciled Discussed plan of care with patient and nurse Plan discussed with: Patient Date of Service: Jan 06, 2024 Billing Provider: SHARATH BENNETT Common Visit Codes: [id number] INP/OBS CARE (MOD) SHARATH BENNETT Jan 06, 2024 13:58
[2024-01-06] MEDS ORDERED: DOCUSATE SOD 100 MG CAP PO PRN (14:30)
[2024-01-06] MEDS ORDERED: HYDROcodone-ACET 5/325MG TAB PO PRN (14:30)
[2024-01-06] MEDS ORDERED: ACETAMINOPHEN 325 MG TAB PO PRN (14:30)
[2024-01-06] MEDS ORDERED: PANT40T PO (15:26)
[2024-01-06] MEDS: SODIUM CHLORIDE 0.9% 1,000 ML IV SCH (18:50)
[2024-01-06] MEDS: MORPHINE SULFATE INJ 2 MG/ml SYRG IV PRN (18:55)
[2024-01-06] MEDS: ONDANSETRON HCL 4 MG/2 ML VIAL IV PRN (18:55)
[2024-01-06 22:29] VITALS: RESP 18; O2SAT 98
[2024-01-07 04:05] LABS: Basophils # (auto) 0 10 ^3/uL (0-0.2); Basophils % (auto) 0.2 % (0.0-2.0); Eosinophils # (auto) 0 10 ^3/uL (0-0.8); Eosinophils % (auto) 0.8 % (0.0-7.0); Hemoglobin 11.5 g/dL (12.2-16.2); Lymphocytes # (auto) 2.3 10 ^3/uL (0.4-5.4); Lymphocytes % (auto) 43.3 % (10.0-50.0); Mean Corpuscular Hemoglobin 27.4 pg (28.0-32.0); Mean Corpuscular Hgb Conc. 32.9 g/dL (32.0-36.0); Mean Corpuscular Volume 83.4 fL (80.0-100.0); Monocytes # (auto) 0.5 10 ^3/uL (0-1.3); Monocytes % (auto) 8.8 % (0.0-12.0); Neutrophils # (auto) 2.5 10 ^3/uL (1.6-8.6); Neutrophils % (auto) 46.9 % (37.0-80.0); Nucleated Red Blood Cells % 0.1 %; Platelet Count (auto) 320 10^3/uL (140-450); Red Cell Distribution Width 15.8 % (11.8-14.3); White Blood Cell 5.4 10^3/uL (4.4-10.8)
[2024-01-07 04:19] LABS: Alanine Aminotransferase 95 U/L (7-40); Albumin 4.2 g/dL (3.2-4.8); Alkaline Phosphatase 96 U/L (46-116); Anion Gap 9 (5-15); Aspartate Aminotransferase 80 U/L (13-40); BUN/Creatinine Ratio 7.3 (10.0-20.0); Bilirubin, Total 1.5 mg/dL (0.2-1.0); Blood Urea Nitrogen 6 mg/dL (9-23); Calcium 9.9 mg/dL (8.7-10.4); Carbon Dioxide 23 mmol/L (20-31); Chloride 108 mmol/L (98-107); Glucose 80 mg/dL (74-106); Potassium 3.8 mmol/L (3.5-5.1); Sodium 140 mmol/L (136-145); Total Protein 6.9 g/dL (5.7-8.2)
[2024-01-07 09:00] VITALS: PULSE 72; RESP 16; TEMP 98.7; O2SAT 97
--- NOTE | 2024-01-07 11:36 | DVHPN2 ---
Eyes: No Pain, No Vision change, No Conjunctivae inflammation, No Eyelid inflammation, No Other, No Redness ENT: No Ear pain, No Ear discharge, No Nose pain, No Nose discharge, No Nose congestion, No Mouth pain, No Mouth swelling, No Throat pain, No Throat swelling, No Other Cardiovascular: No Chest Pain, No Palpitations, No Orthopnea, No Paroxysmal Noc. Dyspnea, No Edema, No Lt Headedness, No Other Respiratory: No Cough, No Dry, No Shortness of breath, No SOB with excertion, No Wheezing, No Hemoptysis, No Pleuritic Pain, No Sputum, No Other Gastrointestinal: Nausea, Vomiting, Abdominal Pain, Diarrhea; No Constipation, No Melena, No Hematochezia, No Other Genitourinary: No Dysuria, No Frequency, No Incontinence, No Hematuria, No Retention, No Other Musculoskeletal: No other, No neck pain, No shoulder pain, No arm pain; back pain; No hand pain, No leg pain, No foot pain Skin: No Rash, No Lesions, No Jaundice, No Bruising, No Other Objective Vitals Vital Signs Date Time Temp Pulse Resp B/P (MAP) Pulse Ox O2 Delivery O2 Flow Rate FiO2 01/07/24 09:00 98.7 72 16 97 98.7 01/06/24 22:29 Room Air* 0 21 Medications Current Medications Medications Dose Ordered Sig/Rica Route Start Time Stop Time Status Last Admin Dose Admin Sodium Chloride 1,000 ml @ 100 mls/hr Q10H IV 01/06/24 14:30 01/07/24 10:30 100 MLS/HR Acetaminophen/ Hydrocodone Bitart 1 tab Q4HP PRN PO 01/06/24 14:30 Ondansetron HCl 4 mg Q4HP PRN IV 01/06/24 14:30 01/07/24 07:57 4 MG Docusate Sodium 100 mg BIDPRN PRN PO 01/06/24 14:30 Acetaminophen 650 mg Q6HP PRN PO 01/06/24 14:30 Morphine Sulfate 2 mg Q4HPRN PRN IV 01/06/24 14:30 01/07/24 08:16 2 MG Laboratory Results Laboratory Tests 01/07/24 03:25 Chemistry Test 01/07/24 03:25 Albumin 4.2 g/dL (3.2-4.8) Calcium Level 9.9 mg/dL (8.7-10.4) Total Protein 6.9 g/dL (5.7-8.2) LFT Test 01/07/24 03:25 Alanine Aminotransferase (ALT) 95 U/L (7-40) H Alkaline Phosphatase 96 U/L (46-116) Aspartate Amino Transferase (AST) 80 U/L (13-40) H Total Bilirubin 1.5 mg/dL (0.2-1.0) H Urinalysis Test 01/06/24 09:08 Urine Color Yellow (Yellow) Urine Clarity Clear (Clear) Urine pH 6.5 (5.0-9.0) Urine Specific [place] 1.030 (1.001-1.035) Urine Protein 1+ (Negative) H Urine Ketones Negative (Negative) Urine Blood Negative /uL (Negative) Urine Nitrite Negative (Negative) Urine Bilirubin Negative (Negative) Urine Urobilinogen 3 mg/dL (Negative) H Urine Leukocyte Esterase Negative /uL (Negative) Urine RBC 3 /hpf (0 - 4) Urine WBC 2 /hpf (0 - 5) Urine Squamous Epithelial Cells Few /hpf (<5) Urine Bacteria None seen /hpf (None Seen) Urine Mucus Few (None Seen) Urine Glucose Normal mg/dL (Normal) KATHRINE PEREZ MD Jan 07, 2024 11:35
[2024-01-07 11:54] VITALS: BP 113/54; PULSE 67; RESP 16; TEMP 98.8; O2SAT 98
[2024-01-07 14:47] VITALS: BP 115/58; PULSE 62; RESP 16; TEMP 98.7; O2SAT 95
[2024-01-07] MEDS: KETOROLAC TROMETH 30 MG/ML 1ML VIAL IV PRN (20:28)
[2024-01-07 21:27] VITALS: BP 122/58; PULSE 60; RESP 16; TEMP 98; O2SAT 96
[2024-01-08 05:00] VITALS: BP 131/79; PULSE 60; RESP 18; TEMP 97.6; O2SAT 98
[2024-01-08 08:00] VITALS: PULSE 66; RESP 17; O2SAT 100
[2024-01-08 09:00] VITALS: BP 130/73; PULSE 66; RESP 17; TEMP 97.9; O2SAT 100
--- NOTE | 2024-01-08 11:00 | DVHPN2 ---
Eyes: No Pain, No Vision change, No Conjunctivae inflammation, No Eyelid inflammation, No Other, No Redness ENT: No Ear pain, No Ear discharge, No Nose pain, No Nose discharge, No Nose congestion, No Mouth pain, No Mouth swelling, No Throat pain, No Throat swelling, No Other Cardiovascular: No Chest Pain, No Palpitations, No Orthopnea, No Paroxysmal Noc. Dyspnea, No Edema, No Lt Headedness, No Other Respiratory: No Cough, No Dry, No Shortness of breath, No SOB with excertion, No Wheezing, No Hemoptysis, No Pleuritic Pain, No Sputum, No Other Gastrointestinal: Nausea, Vomiting, Abdominal Pain, Diarrhea Genitourinary: No Dysuria, No Frequency, No Incontinence, No Hematuria, No Retention, No Other Musculoskeletal: back pain Skin: No Rash, No Lesions, No Jaundice, No Bruising, No Other Objective Vitals Vital Signs Date Time Temp Pulse Resp B/P (MAP) Pulse Ox O2 Delivery O2 Flow Rate FiO2 01/08/24 08:00 66 17 100 Room Air* 0 21 01/08/24 05:00 97.6 131/79 (96) 97.6 Intake/Output Intake and Output 01/08/24 07:00 Intake Total 0 ml Output Total 800 ml Balance -800 ml Intake Oral 0 ml Output Urine Total 800 ml # Voids 5 Medications Current Medications Medications Dose Ordered Sig/Rica Route Start Time Stop Time Status Last Admin Dose Admin Sodium Chloride 1,000 ml @ 100 mls/hr Q10H IV 01/06/24 14:30 01/07/24 10:30 100 MLS/HR Acetaminophen/ Hydrocodone Bitart 1 tab Q4HP PRN PO 01/06/24 14:30 Ondansetron HCl 4 mg Q4HP PRN IV 01/06/24 14:30 01/08/24 01:45 4 MG Docusate Sodium 100 mg BIDPRN PRN PO 01/06/24 14:30 Acetaminophen 650 mg Q6HP PRN PO 01/06/24 14:30 Morphine Sulfate 2 mg Q4HPRN PRN IV 01/06/24 14:30 01/08/24 01:50 2 MG Ketorolac Tromethamine 30 mg Q6HPRN PRN IV 01/07/24 14:15 01/12/24 14:14 01/08/24 05:25 30 MG Laboratory Results Laboratory Tests 01/07/24 03:25 Urinalysis Test 01/06/24 09:08 Urine Color Yellow (Yellow) Urine Clarity Clear (Clear) Urine pH 6.5 (5.0-9.0) Urine Specific [place] 1.030 (1.001-1.035) Urine Protein 1+ (Negative) H Urine Ketones Negative (Negative) Urine Blood Negative /uL (Negative) Urine Nitrite Negative (Negative) Urine Bilirubin Negative (Negative) Urine Urobilinogen 3 mg/dL (Negative) H Urine Leukocyte Esterase Negative /uL (Negative) Urine RBC 3 /hpf (0 - 4) Urine WBC 2 /hpf (0 - 5) Urine Squamous Epithelial Cells Few /hpf (<5) Urine Bacteria None seen /hpf (None Seen) Urine Mucus Few (None Seen) Urine Glucose Normal mg/dL (Normal) Assessment/Plan My Orders Orders - KATHRINE PEREZ MD Procedure Category Date Status Time Ketorolac Injection PHA 01/07/24 In Process (Toradol Injection) 14:15 Mrsa Screen KENN 01/08/24 In Process 09:12 Regular Diet DIET 01/08/24 Transmitted Lunch KATHRINE PEREZ MD Jan 08, 2024 11:00
--- NOTE | 2024-01-08 11:52 | DVHDS2 ---
Discharge Summary Date of Admission Jan 06, 2024 at 14:21 Labs/Diagnostic Data: Laboratory Results Test 01/08/24 11:31 01/07/24 03:25 01/06/24 09:08 Eosinophils (%) (Auto) 0.8 % (0.0-7.0) Eosinophils # (Auto) 0 10 ^3/uL (0-0.8) Basophils # (Auto) 0 10 ^3/uL (0-0.2) Nucleated Red Blood Cells 0.1 % Sodium Level 140 mmol/L (136-145) Potassium Level 3.8 mmol/L (3.5-5.1) Chloride Level 108 mmol/L (98-107) Carbon Dioxide Level 23 mmol/L (20-31) Anion Gap 9 (5-15) Blood Urea Nitrogen 6 mg/dL (9-23) Creatinine 0.82 mg/dL (0.550-1.02) Glomerular Filtration Rate Calc 101 mL/min (>90) BUN/Creatinine Ratio 7.3 (10.0-20.0) Serum Glucose 80 mg/dL (74-106) Calcium Level 9.9 mg/dL (8.7-10.4) Total Bilirubin 1.5 mg/dL (0.2-1.0) Aspartate Amino Transferase (AST) 80 U/L (13-40) Alanine Aminotransferase (ALT) 95 U/L (7-40) Alkaline Phosphatase 96 U/L (46-116) Total Protein 6.9 g/dL (5.7-8.2) Albumin 4.2 g/dL (3.2-4.8) Urine Color Yellow (Yellow) Urine Clarity Clear (Clear) Urine pH 6.5 (5.0-9.0) Urine Specific [place] 1.030 (1.001-1.035) Urine Protein 1+ (Negative) Urine Ketones Negative (Negative) Urine Blood Negative /uL (Negative) Urine Nitrite Negative (Negative) Urine Bilirubin Negative (Negative) Urine Urobilinogen 3 mg/dL (Negative) Urine Leukocyte Esterase Negative /uL (Negative) Urine RBC 3 /hpf (0 - 4) Urine WBC 2 /hpf (0 - 5) Urine Squamous Epithelial Cells Few /hpf (<5) Urine Bacteria None seen /hpf (None Seen) Urine Mucus Few (None Seen) Urine Glucose Normal mg/dL (Normal) Other Laboratory Tests 01/07/24 03:25 Discharge Statement: "Patient was advised to return to the ER or call 911 if any headaches, dizziness, shortness of breath, chest pain, abdominal pain, bleeding, fevers, or worsening of medical condition. Patient was counseled about treatment plan, medications, possible side effects, patientverbalized understanding. All questions were answered to the best of my ability. This discharge took greater then 30 minutes in planning, reviewing documentation, counseling the patient, and discussing with other team members." ASSESSMENT ASSESSMENT Assessment KATHRINE PEREZ MD Jan 08, 2024 11:52
[2024-01-08 11:56] LABS: Basophils # (auto) 0 10 ^3/uL (0-0.2); Basophils % (auto) 0.5 % (0.0-2.0); Eosinophils # (auto) 0.1 10 ^3/uL (0-0.8); Eosinophils % (auto) 1.9 % (0.0-7.0); Lymphocytes # (auto) 1.2 10 ^3/uL (0.4-5.4); Lymphocytes % (auto) 34.6 % (10.0-50.0); Mean Corpuscular Hemoglobin 27.3 pg (28.0-32.0); Mean Corpuscular Hgb Conc. 32.5 g/dL (32.0-36.0); Monocytes # (auto) 0.5 10 ^3/uL (0-1.3); Monocytes % (auto) 13.8 % (0.0-12.0); Neutrophils # (auto) 1.7 10 ^3/uL (1.6-8.6); Neutrophils % (auto) 49.2 % (37.0-80.0); Nucleated Red Blood Cells % 0.1 %; Platelet Count (auto) 278 10^3/uL (140-450); Red Blood Cells 4.05 10^6/uL (4.0-5.20); Red Cell Distribution Width 15.6 % (11.8-14.3); White Blood Cell 3.4 10^3/uL (4.4-10.8)
[2024-01-08] MEDS ORDERED: HYDR-4072 PO (11:59)
[2024-01-08 13:26] VITALS: BP 130/73; PULSE 66; RESP 17; TEMP 97.9; O2SAT 100
== END 2024-01-08 13:52 | disposition home or self-care (01) ==
LOC: ER 09:18 → OVERFLOW 14:21 → CENTRAL 01-08 03:44
PROVIDERS: ATTEND Internal Medicine
DX: K80.20 Calculus of gallbladder without cholecystitis without obstruction (principal); E80.6 Other disorders of bilirubin metabolism; R74.01 Elevation of levels of liver transaminase levels; Z88.3 Allergy status to other anti-infective agents
CPT/HCPCS: 36415; 76705; 80053; 81001; 83690; 85025; 87081; G0378; J1885; J2405